=== PATIENT | female | born 1980 | race Caucasian/White ===

== ENCOUNTER 2016-08-14 11:38 | Emergency (ER) | payer SELFPAY ==
[~2016-08-14] VITALS: Ht 175.3 cm; Wt 74.1 kg
[~2016-08-14 11:38] MED LIST: CIPRO500 M1 PO; FLAGYL500 M1 PO; NORCO 325 MG-51 TA1 PO; NORCO 325 MG-51 TAB PO; ULTRAM 50MG TAB50 MG PO
[2016-08-14] MEDS ORDERED: NORCO 325 MG-51 TA1 PO (14:59)
[2016-08-14 16:18] VITALS: BP 100/63
== END 2016-08-14 15:29 | disposition home or self-care (01) ==
LOC: ED 11:38
DX: R07.89 Other chest pain (principal); R11.0 Nausea; Z82.49 Family history of ischemic heart disease and other diseases of the circulatory system
CPT/HCPCS: J1885; J2360

== ENCOUNTER 2017-04-08 08:08 | Emergency (ER) | payer SELFPAY ==
[2017-04-08] MEDS ORDERED: WELLBUTRIN SR100 M4 PO (08:35)
[2017-04-08 09:19] LABS: EOS % 0.4 % (1.0-5.0); HEMATOCRIT 42.7 % (37.0-47.0); HEMOGLOBIN 14.3 g/dL (12.5-16.0); LYMPH# 2.2 (1.50-4.00); MEAN CELL VOLUME 90 fl (78-100); MEAN CORPUSCULAR HEMOGLOBIN 30 pg (27-31); MEAN CORPUSCULAR HGB CONC 34 g/dL (33-37); MEAN PLATELET VOLUME 9.7 fl (7.4-10.4); MONO # 0.7 (0.20-0.80); NEU # 5.6 (1.40-6.50); PLATELET COUNT 227 K/mm3 (130-400); RED BLOOD COUNT 4.73 M/mm3 (4.10-5.30); RED CELL DISTRIBUTION WIDTH 12.6 % (11.5-14.5); WHITE BLOOD COUNT 8.6 K/mm3 (4.8-10.8)
[2017-04-08 09:20] LABS: BUN/CREATININE RATIO 15.9 (6.0-26.0); CALCIUM 8.8 mg/dL (8.4-10.2); POTASSIUM 3.6 mmol/L (3.6-5.0)
[2017-04-08] MEDS ORDERED: NORCO 325 MG-51 TAB PO (10:44)
[2017-04-08] MEDS ORDERED: CEPHALEXIN500 M1 PO (10:44)
[2017-04-08] MEDS ORDERED: PREDNISONE20 M1 PO (10:44)
[2017-04-08 10:58] VITALS: BP 112/63
== END 2017-04-08 10:55 | disposition home or self-care (01) ==
LOC: ED 08:08
PROVIDERS: Family Medicine
DX: I89.1 Lymphangitis (principal); F32.9 Major depressive disorder, single episode, unspecified
CPT/HCPCS: J0696; J1885; J2920

== ENCOUNTER → 2020-06-17 | Outpatient (CLI) | payer OTHER ==
[~2020-06-17] MED LIST changes: +CEPHALEXIN500 M1 PO; +PREDNISONE20 M1 PO; +WELLBUTRIN SR100 M4 PO
== END ==
LOC: MAMMO 08:56
DX: Z12.31 Encounter for screening mammogram for malignant neoplasm of breast (principal); N63.11 Unspecified lump in the right breast, upper outer quadrant

== ENCOUNTER → 2020-06-28 | Outpatient (CLI) | payer OTHER | LOC: RAD 06:43 | DX: N60.01 Solitary cyst of right breast (principal); R10.32 Left lower quadrant pain ==

== ENCOUNTER → 2020-07-05 | Outpatient (CLI) | payer OTHER | LOC: RAD 06:47 | DX: N60.01 Solitary cyst of right breast (principal) | CPT/HCPCS: 15989; 15990; A4648 ==

== ENCOUNTER 2022-11-24 12:00 | Emergency (ER) | payer OTHER ==
[~2022-11-24] VITALS: Ht 177.8 cm; Wt 65.8 kg
[2022-11-24] MEDS ORDERED: CYCLOBENZ5 MG PO (14:21)
[2022-11-24] MEDS ORDERED: NAPROXEN500 MG PO (14:21)
[2022-11-24 14:54] VITALS: BP 106/64
== END 2022-11-24 15:00 | disposition home or self-care (01) ==
LOC: ED 12:00
DX: S13.4XXA Sprain of ligaments of cervical spine, initial encounter (principal); M25.512 Pain in left shoulder; R10.9 Unspecified abdominal pain; V89.2XXA Person injured in unspecified motor-vehicle accident, traffic, initial encounter; Y92.410 Unspecified street and highway as the place of occurrence of the external cause
CPT/HCPCS: J1885; J2360; L0172

== ENCOUNTER 2024-03-28 09:10 | Emergency (ER) | payer BC ==
[~2024-03-28] VITALS: Ht 175.3 cm; Wt 66.6 kg
[~2024-03-28 09:10] MED LIST changes: +CYCLOBENZ5 MG PO; +NAPROXEN500 MG PO
[2024-03-28] MEDS ORDERED: VALIUM 5MG T5 MG/TAB PO (09:42)
[2024-03-28 09:56] LABS: BASO # 0.01 K/mm3 (0.02-0.10); EOS # 0.03 K/mm3 (0.04-0.40); EOS % 0.2 % (1.0-5.0); HEMOGLOBIN 15.8 g/dL (12.5-16.0); LYMPH# 2.24 K/mm3 (1.50-4.00); MEAN CELL VOLUME 92 fl (78-100); MEAN CORPUSCULAR HEMOGLOBIN 31 pg (27-31); MEAN CORPUSCULAR HGB CONC 34 g/dL (33-37); MEAN PLATELET VOLUME 8.9 fl (7.4-10.4); MONO # 0.81 K/mm3 (0.20-0.80); NEU # 10.75 K/mm3 (1.40-6.50); PLATELET COUNT 405 K/mm3 (130-400); RED BLOOD COUNT 5.12 M/mm3 (4.10-5.30); RED CELL DISTRIBUTION WIDTH 12.1 % (11.5-14.5); WHITE BLOOD COUNT 13.9 K/mm3 (4.8-10.8)
[2024-03-28 10:16] LABS: CALCIUM 10.1 mg/dL (8.3-10.5)
[2024-03-28 10:19] LABS: TOTAL BILIRUBIN 0.7 mg/dL (0.2-1.2)
[2024-03-28] MEDS ORDERED: REGLAN5 M1 PO (11:37)
[2024-03-28] MEDS ORDERED: AZITHROMYCIN 250MGPK PO (11:37)
[2024-03-28 11:50] VITALS: BP 113/72
== END 2024-03-28 11:50 | disposition home or self-care (01) ==
LOC: ED 09:10
PROVIDERS: Physician Assistant
DX: A08.4 Viral intestinal infection, unspecified (principal); R06.4 Hyperventilation; Z88.0 Allergy status to penicillin